=== PATIENT | male | born 1950 | race Caucasian/White ===

== ENCOUNTER 2016-11-24 12:24 | Emergency (ER) | payer MEDICARE ==
[~2016-11-24] VITALS: Ht 167.6 cm; Wt 86.2 kg
[~2016-11-24 12:24] MED LIST: ARICEPT5 MG PO; LEVETIRACETAM500 MG PO; VENLAFAXINE HCL75 MG PO
== END 2016-11-24 13:35 | disposition short-term general hospital (02) ==
LOC: ER 12:24
PROC: 0T9B70Z Drainage of Bladder with Drainage Device, Via Natural or Artificial Opening (ICD-10-PCS; principal; 2016-11-24)
PROC: 0BH17EZ Insertion of Endotracheal Airway into Trachea, Via Natural or Artificial Opening (ICD-10-PCS; 2016-11-24)
DX: S09.90XA Unspecified injury of head, initial encounter (principal); S05.12XA Contusion of eyeball and orbital tissues, left eye, initial encounter; S20.212A Contusion of left front wall of thorax, initial encounter; D50.9 Iron deficiency anemia, unspecified; N28.9 Disorder of kidney and ureter, unspecified; I10 Essential (primary) hypertension; F17.200 Nicotine dependence, unspecified, uncomplicated; W10.9XXA Fall (on) (from) unspecified stairs and steps, initial encounter
CPT/HCPCS: G0477; J0330; J2250